=== PATIENT | female | born 1985 | race Caucasian/White ===

== ENCOUNTER 2021-09-06 01:43 | Emergency (ER) | payer OTHER ==
[2021-09-06] MEDS ORDERED: LEVOFLOXACIN500 MG PO (02:29)
[2021-09-06] MEDS ORDERED: CORTISPORIN SOL10 M1 OT (02:29)
[2021-09-06] MEDS ORDERED: PERCOCET 5-3251 EACH PO (02:30)
== END 2021-09-06 02:49 | disposition home or self-care (01) ==
LOC: ED 01:43
DX: H60.91 Unspecified otitis externa, right ear (principal); Z98.890 Other specified postprocedural states